=== PATIENT | female | born 1970 | race Caucasian/White ===

== ENCOUNTER → 2020-06-29 | Outpatient (CLI) | payer BC, OTHER | LOC: SJCVCIMAG 07:47 | PROVIDERS: ATTEND Internal Medicine | DX: I73.9 Peripheral vascular disease, unspecified (principal); M79.604 Pain in right leg; M79.605 Pain in left leg; R00.2 Palpitations; R07.9 Chest pain, unspecified ==

== ENCOUNTER → 2020-07-06 | Outpatient (CLI) | payer BC, OTHER | LOC: SJCVCIMAG 07:32 | PROVIDERS: ATTEND Internal Medicine | DX: R00.2 Palpitations (principal); I49.3 Ventricular premature depolarization; E78.5 Hyperlipidemia, unspecified ==